=== PATIENT | female | born 1980 | race Caucasian/White ===

== ENCOUNTER 2018-02-22 09:26 | Emergency (ER) | payer BC ==
[2018-02-22 09:44] VITALS: BP 118/79; PULSE 58; TEMP 97.7; BMI 20.8
--- NOTE | 2018-02-22 09:50 | PDOC ---
History of Present Illness - General Chief Complaint: Eye Problem Stated Complaint: LEFT EYELID REDNESS Time Seen by Provider: 02/22/18 09:28 - History of Present Illness Initial Comments: 02/22/18 09:43 37 F with no PMH presents to ED with L eyelid swelling. Pt states this started yesterday. She saw her [facility] [employer] [facility] who diagnosed her with a stye and prescribed ofloxacin drops and augmentin PO. Pt states that she took two doses. Today, she noticed that the swelling seemed worse, and a small amount of pus drained from the stye, prompting her to come to the ER. Pt denies F/C. Denies blurred vision. Denies pain with EOM. Denies pain inside the eye. Past History - Past Medical History Allergies/Adverse Reactions: Allergies Allergy/AdvReac Type Severity Reaction Status Date / Time No Known Allergies Allergy Verified 02/22/18 09:27 Home Medications: Ambulatory Orders Amoxicillin/Potassium Clav [Augmentin 875-125 Tablet] 1 each PO BID 02/22/18 Ofloxacin 0.3% Ophth Soln [Ocuflox 0.3% Eye Drops -] 2 drop OS Q6H 02/22/18 COPD: No - Suicide/Smoking/Psychosocial Hx Smoking History: Never smoked Hx Alcohol Use: Yes (OCCASIONAL SOCIAL DRINK) Drug/Substance Use Hx: No Substance Use Type: None Review of Systems - Review of Systems Comments:: 02/22/18 09:46 GENERAL/CONSTITUTIONAL: No fever or chills. No weakness. HEAD, EYES, EARS, NOSE AND THROAT: + L eyelid swelling, No change in vision. No ear pain or discharge. No sore throat. CARDIOVASCULAR: No chest pain, no shortness of breath, no loss of consciousness RESPIRATORY: No cough, wheezing, or hemoptysis. GASTROINTESTINAL: No nausea, vomiting, diarrhea or constipation. GENITOURINARY: No dysuria, frequency, or change in urination. MUSCULOSKELETAL: No joint or muscle swelling or pain. No neck or back pain. SKIN: No rash NEUROLOGIC: No vertigo, no change in strength/sensation. ENDOCRINE: No increased thirst. No abnormal weight change. HEMATOLOGIC/LYMPHATIC: No anemia, easy bleeding, or history of blood clots. ALLERGIC/IMMUNOLOGIC: No hives or skin allergy. *Physical Exam - Vital Signs Last Vital Signs Temp Pulse Resp BP Pulse Ox 97.7 F 58 L 15 118/79 100 02/22/18 09:27 02/22/18 09:27 02/22/18 09:27 02/22/18 09:27 02/22/18 09:27 - Physical Exam Comments: 02/22/18 09:46 "GENERAL: Awake, alert, and fully oriented, in no acute distress. HEAD: No signs of trauma EYES: + L upper eyelid hordeolum, mild erythema surrounding, PERRLA, EOMI, sclera anicteric, conjunctiva clear, VA 20/30 both eyes ENT: Auricles normal inspection, hearing grossly normal, nares patent, oropharynx clear without exudates. Moist mucosa NECK: Nontender, no stepoffs, Normal ROM, supple, no lymphadenopathy, JVD, or masses LUNGS: Breath sounds equal, clear to auscultation bilaterally. No wheezes, and no crackles HEART: Regular rate and rhythm, normal S1 and S2, no murmurs, rubs or gallops ABDOMEN: Soft, nontender, normoactive bowel sounds. No guarding, no rebound. No masses EXTREMITIES: Normal range of motion, no edema. No clubbing or cyanosis. No cords, erythema, or tenderness NEUROLOGICAL: Cranial nerves II through XII intact. 5/5 strength and sensation in all extremities, Normal speech, normal gait, normal cerebellar function SKIN: Warm, Dry, normal turgor, no rashes or lesions noted. Medical Decision Making - Medical Decision Making 02/22/18 09:47 37 F with hordeolum of L eyelid. No evidence of preseptal cellulitis. No evidence of orbital cellulitis. No s/s of systemic illness. Pt has been on abx for <24 hours and is likely too early in the course to see an effect. - Continue ofloxacin and augmentin - F/u ophtho Pt is well appearing, with normal vitals. Clinically stable for DC at this time. I discussed the physical exam findings, ancillary test results and final diagnoses with the patient. I answered all of the patient's questions. The patient was satisfied with the care received and felt comfortable with the discharge plan and treatment plan. The patient agrees to follow up with the primary care physician within 24-72 hours. *DC/Admit/Observation/Transfer Diagnosis at time of Disposition: Hordeolum external - Discharge Dispostion Disposition: HOME Condition at time of disposition: Good - Referrals Referrals: Maira Cruz [Primary Care Provider] - - Patient Instructions Printed Discharge Instructions: DI for Hordeolum Additional Instructions: Continue using your ofloxacin eye drops as directed, and keep taking the antibiotics as directed. Please allow another 24 hours for the antibiotics to have an effect. If you continue to have worsening symptoms tomorrow, return to the ER. If you at any point experience fevers/chills, pain inside your eye, blurred vision, or any other concerning symptoms, return to the ER immediately. Otherwise, follow up with your [facility] [employer] next week as scheduled. - Post Discharge Activity - Attestations Physician Attestion: 02/22/18 09:50 I, Dr. Erick Fernando MD, attest that this document has been prepared under my direction and personally reviewed by me in its entirety. I further attest, that it accurately reflects all work, treatment, procedures and medical decision -making performed by me.
== END 2018-02-22 09:53 | disposition home or self-care (01) ==
LOC: FER 09:26
DX: H00.014 Hordeolum externum left upper eyelid (principal)
CPT/HCPCS: 99281-25